=== PATIENT | male | born 2005 | race Two or more races ===

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

== ENCOUNTER 2024-07-24 16:25 | Emergency (ER) | payer OTHER ==
[~2024-07-24] VITALS: Ht 175.3 cm; Wt 60.3 kg
[2024-07-24 17:13] LABS: BASO % 0.3 % (0.1-1.2); EOS # 0.46 (0.04-0.54); EOS % 3.2 % (0.7-7.0); HEMATOCRIT 43.7 % (40.1-51.0); HEMOGLOBIN 15.1 g/dL (13.7-17.5); LYMPH # 3.05 (1.18-3.74); MEAN CORPUSCULAR HEMOGLOBIN 30.1 pg (25.6-32.2); MONO # 1.04 (0.24-0.82); MONO % 7.2 % (4.7-12.5); NEUT # 9.87 (1.56-6.13); PLATELET COUNT 278 K/uL (163-369); RED BLOOD COUNT 5.01 M/uL (4.63-6.08); RED CELL DISTRIBUTION WIDTH 11.9 % (11.6-14.4)
[2024-07-24 18:22] LABS: INFLUENZA A AG NEGATIVE (NEGATIVE); INFLUENZA B AG NEGATIVE (NEGATIVE)
[2024-07-24 18:27] LABS: COVID-19 AG NEGATIVE (NEGATIVE)
== END 2024-07-24 19:05 | disposition home or self-care (01) ==
LOC: EMR PED 17:59
DX: R07.89 Other chest pain (principal); Z20.822 Contact with and (suspected) exposure to COVID-19